=== PATIENT | female | born 1985 | race Caucasian/White ===

== ENCOUNTER 2017-07-14 21:18 | Emergency (ER) | payer SELFPAY ==
[~2017-07-14] VITALS: Ht 162.6 cm; Wt 59.0 kg
[2017-07-14 21:40] VITALS: BP 115/77
--- NOTE | 2017-07-14 21:50 | NUR ---
PATIENT AMBULATED TO ER CHAIR C.
--- NOTE | 2017-07-14 21:52 | NUR ---
PATIENT IS A 31 Y/O FEMALE WHO PRESENTS TO THE ED C/O COUGH. PT STATES, "I THINK I HAVE PNEUMONIA." PT REPORTS 8/10 ACHING CHEST PAIN THAT DOES NOT RADIATE. PT DENIES CP, SOB, N/V/D. COUGH NOTED, LUNG SOUNDS CLEAR BL. PT AAOX4, RR EVEN/UNLABORED. PT REPOSITIONED FOR COMFORT, PT SITTING IN CHAIR. ER MD DR. BLACKBURN NOTIFIED. WILL CONTINUE TO MONITOR. Addendum: 07/14/17 at 2203 by MEDDCV PATIENT IS A 31 Y/O FEMALE WHO PRESENTS TO THE ED C/O COUGH. PT STATES, "I THINK I HAVE PNEUMONIA." PT REPORTS 8/10 ACHING CHEST PAIN THAT DOES NOT RADIATE. PT DENIES CP, SOB, N/V/D. PT REPORTS COUGHING UP BLOOD. COUGH NOTED, LUNG SOUNDS CLEAR BL. PT AAOX4, RR EVEN/UNLABORED. PT REPOSITIONED FOR COMFORT, PT SITTING IN CHAIR. ER MD DR. BLACKBURN NOTIFIED. WILL CONTINUE TO MONITOR.
--- NOTE | 2017-07-14 22:00 | NUR ---
PT SENT TO XRAY VIA W/C WITH Amprius AAOX4
--- NOTE | 2017-07-14 22:07 | NUR ---
PT IS BACK FROM XRAY
--- NOTE | 2017-07-14 22:08 | NUR ---
PATIENT RETURN FROM XRAY.
[2017-07-14] MEDS ORDERED: ALBUTEROL 0.083% 2.5 MG/3 ML NEBU INH ONE (22:25)
[2017-07-14] MEDS ORDERED: ACETAMINOPHEN EXTRA STRENGTH 500 MG TAB PO ONE (22:25)
[2017-07-14] MEDS ORDERED: cefTRIAXone 1,000 MG in DEXT 5% MINI-BAG PLUS 50 ML IV ONE (22:25)
[2017-07-14] MEDS ORDERED: AZITHROMYCIN 250 MG TAB PO ONE (22:25)
[2017-07-14] MEDS ORDERED: cefTRIAXone 1,000 MG VIAL ONE (22:35)
[2017-07-14 22:56] LABS: HEMATOCRIT 44.8 % (36-48); HEMOGLOBIN 15.1 g/dL (12.0-16.0); MEAN CORPUSCULAR HEMOGLOBIN 29 pg (27-31); MEAN CORPUSCULAR HGB CONC 34 g/dL (33-37); MEAN CORPUSCULAR VOLUME 87 fL (80-94); PLATELET COUNT (AUTO) 397 K/uL (140-450); RED BLOOD CELL COUNT(AUTO) 5.13 MIL/uL (4.20-5.40); RED CELL DISTRIBUTION WIDTH 11.7 % (11.6-13.7); WHITE BLOOD COUNT (AUTO) 11.9 K/uL (4.8-10.8)
[2017-07-14 23:12] LABS: ALBUMIN 3.6 g/dL (3.4-5.0); ANION GAP 7.8 (8-16); CARBON DIOXIDE 29.8 mmol/L (21-32); CREATININE 0.9 mg/dL (0.6-1.3); POTASSIUM 3.6 mmol/L (3.5-5.1); TOTAL BILIRUBIN 0.7 mg/dL (0.0-1.0)
[2017-07-14 23:19] LABS: LYMPHOCYTES % (MANUAL) 9 % (20-46); MONOCYTES % (MANUAL) 3 % (5-12)
[2017-07-14 23:34] VITALS: BP 121/82
--- NOTE | 2017-07-14 23:34 | NUR ---
Patient discharged with v/s stable. Written and verbal after care instructions given and explained. Patient alert, oriented and verbalized understanding of instructions. Ambulatory with steady gait. All questions addressed prior to discharge. ID band removed. Patient advised to follow up with PMD. Rx of MUCINEX, AZITHROMYCIN, ROBITUSSIN AND ALBUTEROL given. Patient educated on indication of medication including possible reaction and side effects. Opportunity to ask questions provided and answered.
[2017-07-15 01:35] LABS: APPEARANCE,URINE HAZY (CLEAR); BILIRUBIN,URINE 2+ (NEGATIVE); BLOOD, URINE TRACE-L (NEGATIVE); COLOR,URINE YELLOW (YELLOW); LEUKOCYTE ESTERASE ,URINE NEGATIVE (NEGATIVE); NITRITE, URINE POSITIVE (NEGATIVE); PH,URINE 6.5 (5.0-9.0); UGLUCOSE NEGATIVE (NEGATIVE)
[2017-07-15 01:49] LABS: RBC,URINE 0-5 (RARE) /HPF (0-5); WBC,URINE 20-60 /HPF (0-5)
== END 2017-07-14 23:34 | disposition home or self-care (01) ==
LOC: MED 21:18
DX: J18.9 Pneumonia, unspecified organism (principal)
CPT/HCPCS: 36415; 71045; 80053; 81001; 81025; 85025; 87040; 87086; 94640; 96365; 99285; J0696; J7613; 87186

== ENCOUNTER 2019-09-08 19:03 | Emergency (ER) | payer OTHER ==
[~2019-09-08] VITALS: Ht 162.6 cm; Wt 61.2 kg
[2019-09-08 19:26] VITALS: BP 125/78
--- NOTE | 2019-09-08 19:29 | NUR ---
AMBULATED TO BED 5
--- NOTE | 2019-09-08 19:34 | NUR ---
34 YEAR OLD FEMALE COMPLAINS OF RIGHT MIDDLE FINGER PAIN X 3HOURS. PATIENT DENIES TRAUMA, STATES THE PAIN STARTED SUDDENLY. PATIENT UNABLE TO MOVE FINGER, STATES PAIN IS SEVERE. PATIENT AOX4, BREATHING EVEN AND UNLABORED, SKIN WARM AND DRY. BED IN LOWEST POSITION, LOCKED, BED RAIL UPX1. PMH - DENIES ALLERGIES - NKA
--- NOTE | 2019-09-08 19:38 | NUR ---
X-Ray at bedside.
--- NOTE | 2019-09-08 19:42 | NUR ---
Dr. Olsen examining patient.
[2019-09-08] MEDS ORDERED: AMPICILLIN/SULBACTAM 3 GM VIAL ONE (19:57)
[2019-09-08] MEDS: KETOROLAC 30 MG/ML VIAL IVP ONE (20:11)
[2019-09-08] MEDS: AMPICILLIN/SULBACTAM 3 GM in NACL 0.9% 100 ML IV ONE (20:12)
--- NOTE | 2019-09-08 20:55 | NUR ---
ERMD MADE AWARE PT STILL HAS PAIN
[2019-09-08 20:57] LABS: BASOPHILS # (AUTO) 0.1 K/uL (0.00-0.22); BASOPHILS % (AUTO) 1.1 % (0.0-2.0); EOSINOPHILS % (AUTO) 0.9 % (0.0-4.0); HEMATOCRIT 40.5 % (36-48); HEMOGLOBIN 13.5 g/dL (12.0-16.0); LYMPHOCYTES # (AUTO) 1.9 K/uL (2.5-16.5); LYMPHOCYTES % (AUTO) 34.2 % (20.5-51.1); MEAN CORPUSCULAR HEMOGLOBIN 30 pg (27-31); MEAN CORPUSCULAR HGB CONC 33 g/dL (33-37); MEAN CORPUSCULAR VOLUME 91.5 fL (80-94); MONOCYTES # (AUTO) 0.4 K/uL (0.8-1.0); MONOCYTES % (AUTO) 8.2 % (1.7-9.3); NEUTROPHILS % (AUTO) 55.6 % (42.2-75.2); PLATELET COUNT (AUTO) 346 K/uL (140-450); RED BLOOD CELL COUNT(AUTO) 4.43 MIL/uL (4.20-5.40); RED CELL DISTRIBUTION WIDTH 13.5 % (11.6-13.7); WHITE BLOOD COUNT (AUTO) 5.4 K/uL (4.8-10.8)
[2019-09-08] MEDS: ONDANSETRON 4 MG/2 ML VIAL IVP ONE (21:06)
[2019-09-08] MEDS: MORPHINE SULFATE 4 MG/ML SYR IVP ONE (21:06)
--- NOTE | 2019-09-08 21:06 | NUR ---
PATIENT STATES SHE DOES NOT WANT MORPHINE FOR PAIN AND THINKS SHE WILL BE OK AFTER ALL
--- NOTE | 2019-09-08 21:41 | NUR ---
PATIENT ALERT AND AWAKE, BREAHTING EVEN AND UNLABORED
[2019-09-08 21:45] VITALS: BP 125/78
--- NOTE | 2019-09-08 21:45 | NUR ---
Patient discharge with teaching done by Dr Olsen. Patient discharged with v/s stable. Written and verbal after care instructions about cellulitis given and explained. Patient alert, oriented and verbalized understanding of instructions. Ambulatory with steady gait. All questions addressed prior to discharge. ID band removed. Patient advised to follow up with PMD. Rx of keflex, naprosyn given. Patient educated on indication of medication including possible reaction and side effects. Opportunity to ask questions provided and answered.
[2019-09-08 22:31] LABS: ALBUMIN 3.7 g/dL (3.4-5.0); ANION GAP 16.7 (8-16); CARBON DIOXIDE 25.1 mmol/L (21-32); CREATININE 0.8 mg/dL (0.6-1.3); POTASSIUM 3.8 mmol/L (3.5-5.1); TOTAL BILIRUBIN 0.3 mg/dL (0.0-1.0)
== END 2019-09-08 21:45 | disposition home or self-care (01) ==
LOC: MED 19:03
DX: L03.011 Cellulitis of right finger (principal); V19.9XXA Pedal cyclist (driver) (passenger) injured in unspecified traffic accident, initial encounter; F17.210 Nicotine dependence, cigarettes, uncomplicated; Y93.89 Activity, other specified; Y92.89 Other specified places as the place of occurrence of the external cause; Y99.8 Other external cause status
CPT/HCPCS: 36415; 73130; 80053; 81025; 85025; 87040; 96365; 96374; 96375; 99284; J0295; J1885; Q0092; 99283

== ENCOUNTER 2019-09-10 11:23 | Emergency (ER) | payer OTHER ==
[~2019-09-10] VITALS: Ht 162.6 cm; Wt 61.2 kg
[2019-09-10 11:32] VITALS: BP_SYST 100; BP_SYST 144; BP_DIAS 97
--- NOTE | 2019-09-10 12:01 | NUR ---
34 Y/O FEMALE FROM HOME C/O RT MIDDLE FINGER PAIN WITH SWELLING X 2 DAYS. PT STATES SHE WAS SEEN AT [facility] 2 DAYS AGO FOR CELLULITIS TO RT MIDDLE FINGER AND WAS GIVEN IV ANTIBIOTICS. +CMS, CAP REFILL <2 SECONDS. NOTICABLE SWELLING TO MIDDLE DIGIT. PT STATES 12/21 CONSTANT PAIN. HAS BEEN TAKING IBUPROFEN FOR PAIN WITH MINIMAL PAIN RELIEF. LMP 08/22/19.
--- NOTE | 2019-09-10 12:22 | NUR ---
DR CANALES AT BEDSIDE EXAMINING PT
[2019-09-10 12:40] VITALS: BP 144/97
--- NOTE | 2019-09-10 12:40 | NUR ---
Patient discharged with v/s stable. Written and verbal after care instructions given and explained. Patient alert, oriented and verbalized understanding of instructions. Ambulatory with steady gait. All questions addressed prior to discharge. ID band removed. Patient advised to follow up with PMD. Rx of BACTRIM & NORCO given. Patient educated on indication of medication including possible reaction and side effects. Opportunity to ask questions provided and answered.
== END 2019-09-10 12:40 | disposition home or self-care (01) ==
LOC: MED 11:23
DX: L03.011 Cellulitis of right finger (principal)
CPT/HCPCS: 99283

== ENCOUNTER 2019-12-12 02:00 | Emergency (ER) | payer OTHER ==
[~2019-12-12] VITALS: Ht 162.6 cm; Wt 69.9 kg
[2019-12-12 02:08] VITALS: BP 150/98
--- NOTE | 2019-12-12 02:11 | NUR ---
PT AMBULATED TO BED #4
--- NOTE | 2019-12-12 02:13 | NUR ---
Dr. Randolph examining patient.
--- NOTE | 2019-12-12 02:34 | NUR ---
NO NURSING INTERVENTIONS PERFORMED. PT SEEN BY DR MELTON. D/C WITH RX OF KEFLEX, BACTRIM, AND LAMISIL TOPICAL CREAM. EDUCATED ON MEDICATIONS AND SIDE EFFECTS. ALL QUESTIONS ANSWERED.
[2019-12-12 02:35] VITALS: BP 150/98
== END 2019-12-12 02:34 | disposition home or self-care (01) ==
LOC: MED 02:00
DX: B35.3 Tinea pedis (principal); L03.115 Cellulitis of right lower limb
CPT/HCPCS: 99283

== ENCOUNTER 2020-06-27 00:47 | Emergency (ER) | payer OTHER ==
[~2020-06-27] VITALS: Ht 167.6 cm; Wt 72.1 kg
[2020-06-27 00:51] VITALS: BP 145/97
--- NOTE | 2020-06-27 00:58 | NUR ---
ERMD AT BEDSIDE FOR MEDICAL EVALUATION.
--- NOTE | 2020-06-27 01:04 | NUR ---
34 YR OLD FEMALE PRESENTED TO THE ER FOR CC OF MEDICATION REFILL. PT IS AOX4. PT STATES LOSING MEDICATION PRESCRIPTION FOR A DOG BITE THAT OCCURED YESTERDAY. PT STATES 7/10 NON-RADIATING PAIN ON LEFT HAND. PT HAS TWO 1/8 INCH TEAR ON LEFT HAND ON THUMB SIDE AND RIGHT FOREARM FROM DOG BITE YESTERDAY. PT HAS NO SIGNS OF BLEEDING. PT DENIES OTHER MEDICAL COMPLAINTS. BED IS LOCKED IN LOWEST POSITION. HISTORY- NONE ALLERGIES- NONE
[2020-06-27] MEDS ORDERED: AMOXIL/CLAVULANATE 500/125 MG 1 TAB PO ONE (01:05)
[2020-06-27] MEDS ORDERED: cefTRIAXone 1,000 MG in LIDOCAINE MPF 1% 2.1 ML IM ONE (01:25)
[2020-06-27] MEDS ORDERED: cefTRIAXone 1,000 MG VIAL ONE (01:25)
[2020-06-27] MEDS ORDERED: LIDOCAINE MPF 1% 5 ML ONE (01:25)
[2020-06-27] MEDS ORDERED: AMOXICILLIN 500 MG CAP PO ONE (01:25)
[2020-06-27] MEDS ORDERED: LIDOCAINE MPF 1% 10 MG/ML VIAL INJ ONE (01:25)
[2020-06-27 01:40] VITALS: BP 145/97
--- NOTE | 2020-06-27 01:40 | NUR ---
Patient discharged with v/s stable. Written and verbal after care instructions given and explained. Patient alert, oriented and verbalized understanding of instructions. Ambulatory with steady gait. All questions addressed prior to discharge. ID band removed. Patient advised to follow up with PMD. Rx of MOTRIN AND AUGMENTIN given. Patient educated on indication of medication including possible reaction and side effects. Opportunity to ask questions provided and answered.
== END 2020-06-27 01:40 | disposition home or self-care (01) ==
LOC: MED 00:47
DX: S61.052A Open bite of left thumb without damage to nail, initial encounter (principal); R03.0 Elevated blood-pressure reading, without diagnosis of hypertension; W54.0XXA Bitten by dog, initial encounter; Y93.89 Activity, other specified; Y92.89 Other specified places as the place of occurrence of the external cause; Y99.8 Other external cause status
CPT/HCPCS: 96372; 99283; J0696; J2001

== ENCOUNTER 2021-06-03 10:08 | Emergency (ER) | payer OTHER ==
[~2021-06-03] VITALS: Ht 162.6 cm; Wt 67.1 kg
[2021-06-03 10:29] VITALS: BP 156/104
[2021-06-03] MEDS ORDERED: predniSONE 20 MG TAB PO ONE (11:30)
[2021-06-03] MEDS ORDERED: FAMOTIDINE 20 MG TAB PO ONE (11:30)
[2021-06-03 12:31] LABS: BASOPHILS % (AUTO) 0.8 % (0.0-2.0); EOSINOPHILS % (AUTO) 0.2 % (0.0-4.0); HEMATOCRIT 40.2 % (36-48); HEMOGLOBIN 13.5 g/dL (12.0-16.0); LYMPHOCYTES # (AUTO) 0.7 K/uL (2.5-16.5); LYMPHOCYTES % (AUTO) 21.9 % (20.5-51.1); MEAN CORPUSCULAR HEMOGLOBIN 29 pg (27-31); MEAN CORPUSCULAR HGB CONC 34 g/dL (33-37); MONOCYTES # (AUTO) 0.3 K/uL (0.8-1.0); MONOCYTES % (AUTO) 8.4 % (1.7-9.3); NEUTROPHILS # (AUTO) 2.3 K/uL (1.8-7.7); NEUTROPHILS % (AUTO) 68.7 % (42.2-75.2); PLATELET COUNT (AUTO) 251 K/uL (140-450); RED BLOOD CELL COUNT(AUTO) 4.62 MIL/uL (4.20-5.40); RED CELL DISTRIBUTION WIDTH 14.9 % (11.6-13.7); WHITE BLOOD COUNT (AUTO) 3.3 K/uL (4.8-10.8)
--- NOTE | 2021-06-03 12:33 | NUR ---
pt stated that she will pick up driver her daughter and will be back
[2021-06-03 13:13] LABS: ALBUMIN 3.3 g/dL (3.4-5.0); ANION GAP 14.1 (8-16); CARBON DIOXIDE 27.4 mmol/L (21-32); CREATININE 0.7 mg/dL (0.6-1.3); POTASSIUM 4.5 mmol/L (3.5-5.1); TOTAL BILIRUBIN 0.3 mg/dL (0.0-1.0)
[2021-06-03] MEDS ORDERED: MAG355OR2 PO (13:42)
[2021-06-03] MEDS ORDERED: FAMO-90 PO (13:43)
[2021-06-03 13:54] VITALS: BP 156/104
--- NOTE | 2021-06-03 13:55 | NUR ---
Patient discharged with v/s stable. Written and verbal after care instructions given and explained. Patient alert, oriented and verbalized understanding of instructions. Ambulatory with steady gait. All questions addressed prior to discharge. ID band removed. Patient advised to follow up with PMD. Rx of famotidine, maalox given. Patient educated on indication of medication including possible reaction and side effects. Opportunity to ask questions provided and answered.
== END 2021-06-03 13:55 | disposition home or self-care (01) ==
LOC: MED 10:08
DX: K29.70 Gastritis, unspecified, without bleeding (principal); Z79.899 Other long term (current) drug therapy
CPT/HCPCS: 36415; 71045; 76705; 80053; 81002; 81025; 83690; 84484; 85025; 93005; 99285; J7512; Q0092; Q0163